=== PATIENT | female | born 1990 | race Caucasian/White ===

== ENCOUNTER 2020-12-28 22:53 | Inpatient (IN) | payer OTHER ==
[2020-12-28 23:13] VITALS: BMI 26.6
[2020-12-29 00:04] LABS: Fetal Membranes Rupture No Membranes Rupture (No Rupture)
[2020-12-29] MEDS ORDERED: Methylergonovine 0.2 MG/ML VIAL IM PRN (01:21)
[2020-12-29] MEDS ORDERED: Lidocaine 1% (PF) 30 ML VIAL SC PRN (01:21)
[2020-12-29] MEDS ORDERED: Promethazine HCl 25 MG/ML VIAL IM PRN ×2 (01:21→02:35)
[2020-12-29] MEDS ORDERED: Butorphanol Tartrate 1 MG/ML VIAL SLOW IVP PRN (01:21)
[2020-12-29] MEDS ORDERED: Docusate 100 MG CAP PO PRN (01:21)
[2020-12-29] MEDS ORDERED: Carboprost 250 MCG/ML AMP IM PRN (01:21)
[2020-12-29] MEDS ORDERED: Zolpidem Tartrate 5 MG TAB PO PRN ×2 (01:21→05:36)
[2020-12-29] MEDS ORDERED: Ibuprofen 800 MG TAB PO PRN (01:21)
[2020-12-29] MEDS ORDERED: Misoprostol 200 MCG TAB PR PRN (01:21)
[2020-12-29] MEDS ORDERED: hydrALAZINE 20 MG/ML VIAL SLOW IVP PRN ×3 (01:21→10:34)
[2020-12-29] MEDS ORDERED: Diphenoxylate HCl/Atropine Tablet PO PRN (01:21)
[2020-12-29] MEDS ORDERED: Acetaminophen 500 MG TAB PO PRN (01:21)
[2020-12-29] MEDS ORDERED: Ondansetron PF 4 MG/2 ML Vial IVP PRN ×2 (01:21→02:35)
[2020-12-29 01:42] LABS: Mean Corpuscular HGB CONC 34.3 g/dL (32.0-36.0); Mean Corpuscular Hemoglobin 32.6 pg (27.0-33.0); Mean Platelet Volume 12.5 fl (7.4-10.4); Platelet Count 140 10x3/uL (150-450); RBC Distribution Width 13.3 % (11.5-14.5); Red Blood Cell (RBC) Count 3.99 10x6/uL (3.90-5.03); White Blood Cell (WBC) Count 14.4 10x3/uL (3.5-10.5)
[2020-12-29] MEDS: Lactated Ringer's 1,000 ML IV SCH ×2 (01:50→02:31)
[2020-12-29] MEDS ORDERED: Fentanyl 2 mcg/Bup 0.1% Cadd 100 ML ONE (01:56)
[2020-12-29] MEDS ORDERED: NS w/ Oxytocin 30 units 500 ML IV SCH ×2 (02:00)
[2020-12-29] MEDS: CEFAZOLIN 1 GM in Sodium Chloride 0.9% 100 ML IVPB SCH ×2 (02:07→11:07)
[2020-12-29 02:25] LABS: Hep B Surf Ag Non-Reactive S/CO (NonReactive); Syphilis Antibody Nonreactive (Nonreactive); Syphilis Antibody Index 0.04 S/CO (<1.00 Non-Reactive)
[2020-12-29 02:30] LABS: HBSAg Index 0.16 S/CO (0-0.99)
[2020-12-29] MEDS ORDERED: ePHEDrine Sulfate 50 MG/10 ML VIAL SLOW IVP PRN (02:35)
[2020-12-29] MEDS ORDERED: diphenhydrAMINE 50 MG/ML VIAL IVP PRN (02:35)
[2020-12-29] MEDS ORDERED: Lactated Ringer's 500 ML IV PRN (02:35)
[2020-12-29] MEDS ORDERED: Hydrocerin (Eucerin) Cream 120 gm Jar TOP PRN (02:35)
[2020-12-29] MEDS ORDERED: Naloxone HCl 0.4 mg/ml Vial IVP PRN ×2 (02:35)
[2020-12-29] MEDS ORDERED: Acetaminophen 325 MG TAB PO PRN (02:35)
[2020-12-29] MEDS ORDERED: Communication Order-Pharmacy FS SCH (02:45)
[2020-12-29] MEDS ORDERED: Fentanyl 2 mcg/Bupivacaine 0.1% Cassette 100 ML EPIDURAL SCH (02:45)
[2020-12-29] MEDS ORDERED: Famotidine/PF 20 mg/2ml Vial SLOW IVP SCH (04:00)
[2020-12-29 04:23] LABS: SARS-CoV-2 NAA Rapid Test Not Detected (NotDetected)
[2020-12-29] MEDS ORDERED: HYDROcodone/Acetaminophen 5/325 mg Tablet PO PRN (05:36)
[2020-12-29] MEDS ORDERED: Boostrix 0.5 ML (Tdap) VIAL IM ONE (05:36)
[2020-12-29] MEDS ORDERED: Lanolin Ointment 7 GM TUBE TOP PRN ×2 (05:36→10:34)
[2020-12-29] MEDS ORDERED: Simethicone Chewable 80 MG TAB PO SCH (06:00)
[2020-12-29] MEDS ORDERED: Docusate Calcium (SURFAK) 240 MG CAP PO SCH (09:00)
[2020-12-29] MEDS ORDERED: Prenatal Vitamin 1 TAB PO SCH (09:00)
[2020-12-29] MEDS ORDERED: Bisacodyl 10 MG SUPP PR PRN (10:34)
[2020-12-29] MEDS ORDERED: Milk Of Magnesia 30 ML UDCUP PO PRN (10:34)
[2020-12-29] MEDS ORDERED: Benzocaine-Menthol 82.5 ML CAN TOP PRN (10:34)
[2020-12-29] MEDS ORDERED: Preparation H Ointment 28 GM TUBE PR PRN (10:34)
[2020-12-29] MEDS: Ibuprofen 800 MG TAB PO SCH ×2 (14:38→18:37)
[2020-12-29] MEDS: Ferrous Sulfate 325 MG TAB PO SCH (17:25)
[2020-12-29] MEDS: Docusate Calcium (SURFAK) 240 MG CAP PO SCH (21:30)
[2020-12-30] MEDS: traMADol HCl 50 MG TAB PO PRN ×3 (04:16→17:04)
[2020-12-30] MEDS: Ibuprofen 800 MG TAB PO SCH ×3 (06:14→21:09)
[2020-12-30] MEDS: Ferrous Sulfate 325 MG TAB PO SCH ×2 (07:24→14:19)
[2020-12-30] MEDS: Docusate Calcium (SURFAK) 240 MG CAP PO SCH ×2 (08:26→21:08)
[2020-12-30] MEDS: Prenatal Vitamin 1 TAB PO SCH (08:26)
[2020-12-31] MEDS: Ibuprofen 800 MG TAB PO SCH (05:36)
[2020-12-31] MEDS: Ferrous Sulfate 325 MG TAB PO SCH (07:19)
[2020-12-31 07:59] VITALS: BP 121/59; TEMP 98.1
[2020-12-31] MEDS: Docusate Calcium (SURFAK) 240 MG CAP PO SCH (08:35)
[2020-12-31] MEDS: Prenatal Vitamin 1 TAB PO SCH (08:36)
[2020-12-31] MEDS: traMADol HCl 50 MG TAB PO PRN (08:38)
== END 2020-12-31 12:05 | disposition home or self-care (01) | DRG 807 ==
LOC: CSHLD/OP 22:53 → UNDOADMIN 22:54 → CSHLD 22:54 → CSHPP 12-29 12:46
PROVIDERS: ADMIT Obstetrics & Gynecology; ATTEND Obstetrics & Gynecology
PROC: 10E0XZZ Delivery of Products of Conception, External Approach (ICD-10-PCS; principal; 2020-12-30)
PROC: 0HQ9XZZ Repair Perineum Skin, External Approach (ICD-10-PCS; 2020-12-30)
DX: O13.4 Gestational [pregnancy-induced] hypertension without significant proteinuria, complicating childbirth (principal); Z20.822 Contact with and (suspected) exposure to COVID-19; O70.0 First degree perineal laceration during delivery; Z37.0 Single live birth; Z86.16 Personal history of COVID-19; Z88.0 Allergy status to penicillin; Z3A.38 38 weeks gestation of pregnancy
CPT/HCPCS: 36415; 51702; 84112; 85027; 86780; 86850; 86900; 86901; 87340; 99285; J0690; J2405; J2590; J3490; S0028; U0002

== ENCOUNTER 2022-06-22 22:07 | Observation (INO) | payer OTHER ==
[2022-06-22 22:43] VITALS: BMI 22.7
== END 2022-06-23 09:00 | disposition home or self-care (01) ==
LOC: CSHLD/OP 22:07 → CSHLD 23:01
PROVIDERS: ADMIT Obstetrics & Gynecology; ATTEND Obstetrics & Gynecology
DX: O46.92 Antepartum hemorrhage, unspecified, second trimester (principal); M06.9 Rheumatoid arthritis, unspecified; O99.112 Other diseases of the blood and blood-forming organs and certain disorders involving the immune mechanism complicating pregnancy, second trimester; L93.0 Discoid lupus erythematosus; Z86.19 Personal history of other infectious and parasitic diseases; Z79.899 Other long term (current) drug therapy; Z88.0 Allergy status to penicillin; Z3A.22 22 weeks gestation of pregnancy
CPT/HCPCS: 99285; G0378

== ENCOUNTER 2022-10-20 05:30 | Inpatient (IN) | payer OTHER ==
[2022-10-20] MEDS ORDERED: Bupivacaine 0.25% HCL 30 ML VIAL ONE (13:00)
[2022-10-20] MEDS ORDERED: ePHEDrine Sulfate 50 MG/10 ML VIAL ONE (13:00)
[2022-10-20] MEDS ORDERED: Lidocaine 1% (PF) 30 ML VIAL SC PRN (20:49)
[2022-10-20] MEDS ORDERED: Oxytocin 30 units/NS 500 ML 500 ML IV SCH (20:49)
[2022-10-20] MEDS ORDERED: fentaNYL 50 mcg/mL 1 mL Vial SLOW IVP PRN (20:49)
[2022-10-20] MEDS ORDERED: Promethazine HCl 25 MG/ML VIAL IM PRN (20:49)
[2022-10-20] MEDS ORDERED: Zolpidem Tartrate 5 MG TAB PO PRN (20:49)
[2022-10-20] MEDS ORDERED: hydrALAZINE 20 MG/ML VIAL SLOW IVP PRN (20:49)
[2022-10-20] MEDS ORDERED: Diphenoxylate HCl/Atropine Tablet PO PRN ×2 (20:49)
[2022-10-20] MEDS ORDERED: Acetaminophen 500 MG TAB PO PRN (20:49)
[2022-10-20] MEDS ORDERED: Carboprost 250 MCG/ML AMP IM PRN (20:49)
[2022-10-20] MEDS ORDERED: Misoprostol 200 MCG TAB PR PRN (20:49)
[2022-10-20] MEDS ORDERED: Methylergonovine 0.2 MG/ML VIAL IM PRN (20:49)
[2022-10-20] MEDS ORDERED: Tranexamic Acid 1,000 MG/10 ML VIAL IVP PRN (20:49)
[2022-10-20] MEDS ORDERED: Ondansetron PF 4 MG/2 ML Vial IVP PRN (20:49)
[2022-10-20 20:53] VITALS: BMI 25.8
[2022-10-20] MEDS: Lactated Ringer's 1,000 ML IV SCH (21:24)
[2022-10-20 21:35] LABS: Hematocrit 34.8 % (34.9-44.5); Mean Corpuscular HGB CONC 34.5 g/dL (32.0-36.0); Mean Corpuscular Hemoglobin 31.7 pg (27.0-33.0); Mean Corpuscular Volume 91.8 fl (81.6-98.3); Mean Platelet Volume 12.9 fl (7.4-10.4); Platelet Count 141 10x3/uL (150-450); RBC Distribution Width 13.2 % (11.5-14.5); Red Blood Cell (RBC) Count 3.79 10x6/uL (3.90-5.03); White Blood Cell (WBC) Count 9.6 10x3/uL (3.5-10.5)
[2022-10-20] MEDS: Misoprostol 100 MCG TAB VAG SCH (21:38)
[2022-10-20] MEDS: CEFAZOLIN 2 GM in Sodium Chloride 0.9% 100 ML IVPB SCH (21:38)
[2022-10-20 22:07] LABS: HBSAg Index 0.16 S/CO (0-0.99); Hep B Surf Ag - L&D Non-Reactive S/CO (NonReactive)
[2022-10-21 01:02] LABS: Syphilis Antibody Nonreactive (Nonreactive); Syphilis Antibody Index 0.08 S/CO (<1.00 Non-Reactive)
[2022-10-21] MEDS: Misoprostol 100 MCG TAB VAG SCH ×4 (02:23→11:41)
[2022-10-21] MEDS: Oxytocin 30 units/NS 500 ML 500 ML IV SCH ×2 (02:24→12:04)
[2022-10-21] MEDS: CEFAZOLIN 2 GM in Sodium Chloride 0.9% 100 ML IVPB SCH (05:26)
[2022-10-21] MEDS ORDERED: fentaNYL/Ropivacaine Epidural 100 ML ONE (06:09)
[2022-10-21] MEDS: Lactated Ringer's 1,000 ML IV SCH (06:58)
[2022-10-21] MEDS ORDERED: Acetaminophen 325 MG TAB PO PRN (07:09)
[2022-10-21] MEDS ORDERED: Moisturizing Cream (Eucerin) 113 GM JAR TOP PRN (07:09)
[2022-10-21] MEDS ORDERED: Naloxone HCl 0.4 mg/ml Vial IVP PRN ×2 (07:09)
[2022-10-21] MEDS ORDERED: ePHEDrine Sulfate 50 MG/10 ML VIAL SLOW IVP PRN (07:09)
[2022-10-21] MEDS ORDERED: Lactated Ringer's 500 ML IV PRN (07:09)
[2022-10-21] MEDS ORDERED: diphenhydrAMINE 50 MG/ML VIAL IVP PRN (07:09)
[2022-10-21] MEDS ORDERED: Ondansetron PF 4 MG/2 ML Vial IVP PRN (07:09)
[2022-10-21] MEDS ORDERED: Promethazine HCl 25 MG/ML VIAL IM PRN (07:09)
[2022-10-21] MEDS ORDERED: ACTIVE EPIDURAL FS PRN (07:15)
[2022-10-21] MEDS ORDERED: fentaNYL 2 mcg/Ropivacaine 0.2% Epidural 100 ML CADD EPIDURAL SCH ×2 (07:15)
[2022-10-21] MEDS ORDERED: Preparation H Ointment 28 GM TUBE PR PRN (11:40)
[2022-10-21] MEDS ORDERED: hydrALAZINE 20 MG/ML VIAL SLOW IVP PRN (11:40)
[2022-10-21] MEDS ORDERED: Benzocaine-Menthol 82.5 ML CAN TOP PRN (11:40)
[2022-10-21] MEDS ORDERED: Milk Of Magnesia 30 ML UDCUP PO PRN (11:40)
[2022-10-21] MEDS ORDERED: Bisacodyl 10 MG SUPP PR PRN (11:40)
[2022-10-21] MEDS ORDERED: diphenhydrAMINE 25 MG CAP PO PRN (11:40)
[2022-10-21] MEDS ORDERED: Boostrix 0.5 ML (Tdap) VIAL (>/=7 yrs of age) IM ONE (11:40)
[2022-10-21] MEDS ORDERED: Oxytocin 30 units/NS 500 ML 500 ML ONE (12:00)
[2022-10-21] MEDS: Ibuprofen 800 MG TAB PO SCH ×2 (14:47→21:10)
[2022-10-21] MEDS: traMADol HCl 50 MG TAB PO PRN ×2 (14:55→22:07)
[2022-10-21] MEDS: Ferrous Sulfate 325 MG TAB PO SCH (17:24)
[2022-10-21] MEDS: Docusate 100 MG CAP PO SCH (21:10)
[2022-10-22] MEDS: Ibuprofen 800 MG TAB PO SCH ×3 (05:07→21:04)
[2022-10-22] MEDS: traMADol HCl 50 MG TAB PO PRN ×3 (05:08→19:28)
[2022-10-22] MEDS: Docusate 100 MG CAP PO SCH ×2 (08:49→21:04)
[2022-10-22] MEDS: Prenatal Vitamin 1 TAB PO SCH (08:49)
[2022-10-22] MEDS: Ferrous Sulfate 325 MG TAB PO SCH ×2 (12:34→21:05)
[2022-10-23] MEDS: Ibuprofen 800 MG TAB PO SCH (05:28)
[2022-10-23] MEDS: traMADol HCl 50 MG TAB PO PRN (06:29)
[2022-10-23 07:42] VITALS: BP 115/75; TEMP 98.3
[2022-10-23] MEDS: Docusate 100 MG CAP PO SCH (08:21)
[2022-10-23] MEDS: Ferrous Sulfate 325 MG TAB PO SCH (08:21)
[2022-10-23] MEDS: Prenatal Vitamin 1 TAB PO SCH (08:21)
== END 2022-10-23 12:25 | disposition home or self-care (01) | DRG 806 ==
LOC: CSHLD 20:24 → CSHPP 10-21 12:49
PROVIDERS: ADMIT Obstetrics & Gynecology; ATTEND Obstetrics & Gynecology
PROC: 10E0XZZ Delivery of Products of Conception, External Approach (ICD-10-PCS; principal; 2022-10-21)
DX: O99.824 Streptococcus B carrier state complicating childbirth (principal); O98.32 Other infections with a predominantly sexual mode of transmission complicating childbirth; Z37.0 Single live birth; Z3A.39 39 weeks gestation of pregnancy; Z88.0 Allergy status to penicillin; A60.00 Herpesviral infection of urogenital system, unspecified
CPT/HCPCS: 36415; 51702; 85027; 86780; 86850; 86900; 86901; 87340; J2405; J2590; J3490; J7120; S0020